=== PATIENT | female | born 1945 | race Caucasian/White ===

== ENCOUNTER 2018-10-08 18:53 | Inpatient (IN) | payer MEDICARE, OTHER ==
[~2018-10-08] VITALS: Ht 165.1 cm; Wt 76.7 kg
--- NOTE | ~2018-10-08 | PROC ---
[address] [address] PROCEDURE REPORT Name: JOSE BECERRIL Room: [address] IN M.R.#: [id number] Admission: 10/08/18 Attend Phys: Janes Fowler Discharge: Date of : 41 Report #: [id number] THIS REPORT FOR: //name// For GI report, please see the provation report in perceptive 7. By: [facility]3Medical Records Staff TIM /LIGIA
[~2018-10-08 18:53] MED LIST: AMBIEN 10 MG TA10 MG OR; ATIVAN1 MG OR; COZAAR 50 MG TA50 M1 PO; DYAZIDE; ETODOLAC 400 M400 M1; ETODOLAC 400 M400 MG OR; FISH OIL 1,0001 EAC5 OR; FISHOIL; KLOR-CON 10 ER10 MEQ OR; LEVOTHROID75 MCG OR; LEVOTHYROXIN0.075 MG PO; PERCOCET PO; SIMVASTATIN40 MG PO; TRAMADOL 50 MG50 MG PO; TRIAMTERENE-HC1 EAC1 OR; XARELTO10 MG PO
[2018-10-08 18:56] VITALS: BP 169/89
[2018-10-08 20:32] LABS: HEMATOCRIT 45.6 % (37.0-47.0); HEMOGLOBIN 15.2 gm/dL (12.0-15.0); MCH 33.1 pg (26.0-34.0); MCHC 33.4 g/dL (28.0-37.0); MCV 99.1 fL (80.0-100.0); NUCLEATED RBCS 0 /100WBC; PLATELET COUNT* 247 thou/uL (150-400); RBC 4.59 mil/uL (4.20-5.00); RDW-CV 13.2 % (10.5-14.5); WBC 13.8 thou/uL (4.0-11.0)
[2018-10-08 20:52] LABS: ANION GAP 8 mmol/L (7-16); BUN 16 mg/dL (7-18); CHLORIDE 106 mmol/L (98-107); CO2 25 mmol/L (21-32); GLUCOSE 152 mg/dL (70-99); POTASSIUM 4.2 mmol/L (3.5-5.1); SODIUM 139 mmol/L (136-145)
[2018-10-08 20:56] LABS: ALBUMIN 3.5 g/dL (3.4-5.0); ALKALINE PHOSPHATASE 120 U/L (46-116); LIPASE 150 U/L (73-393); SGOT 24 U/L (15-37); SGPT 45 U/L (30-65); TOTAL BILIRUBIN 0.4 mg/dL (<0.1-1.0); TOTAL PROTEIN 7.1 g/dL (6.4-8.2); TROPONIN-I LEVEL <0.06 ng/mL (<0.06)
[2018-10-08 21:22] LABS: ABSOLUTE LYMPHOCYTES 1.8 thou/uL (0.8-5.3); ATYPICAL LYMPHS 1 %
[2018-10-08 21:23] LABS: PLATELET ESTIMATE ADEQUATE
[2018-10-08 22:43] LABS: URINE BILIRUBIN NEGATIVE (Negative); URINE BLOOD 1+ (Negative); URINE CLARITY CLEAR; URINE COLOR YELLOW; URINE GLUCOSE-RANDOM NEGATIVE (Negative); URINE KETONES NEGATIVE (Negative); URINE LEUKOCYTES-REFLEX NEGATIVE (Negative); URINE NITRITE-REFLEX NEGATIVE (Negative); URINE PROTEIN NEGATIVE (Negative); URINE SPECIFIC GRAVITY <= 1.005 (1.005-1.030); URINE UROBILINOGEN 0.2 E.U./dl (0.2-1.0)
[2018-10-08 23:11] VITALS: BP 184/83
[2018-10-08 23:20] VITALS: BP 168/63
[2018-10-08 23:53] LABS: CASTS None Seen /LPF (None Seen); SQUAMOUS NONE SEEN /LPF (0-3)
[2018-10-08 23:54] LABS: BACTERIA-REFLEX None Seen /HPF (None Seen); CRYSTALS None Seen /LPF (None Seen); URINE RBC 0-2 Rare /HPF (0-2); URINE WBC-REFLEX None Seen /HPF (0-5)
[2018-10-09 04:00] VITALS: BP 115/54
--- NOTE | 2018-10-09 04:55 | NUR ---
KRISTINA RESTED IN BED, NO ACUTE CHANGES. PATIENT PAIN HAS DECREASED. PATIENT IS NOT SHOWING SIGNS OF DISTRESS. FALL PRECAUTIONS IN PLACE, CALL LIGHT WITHIN REACH, HOURLY ROUNDING OBSERVED.
[2018-10-09 08:05] VITALS: BP 136/73
[2018-10-09 12:00] VITALS: BP 140/68
--- NOTE | 2018-10-09 12:02 | NUR ---
PT.SITTING UP IN BED, VISITING WITH SON,CORNELL. SHE WAS ALERT AND ORIENTED. STATED HER DAUGHTER,HALIMA,LIVES WITH HER. PT.SAYS SHE IS INDEPENDENT EXCEPT FOR DRIVING. SHE COOKS,CLEANS, DOES LAUNDRY. DAUGHTER WORKS DURING THE DAY. SHE DOES NOT USE ANY DME. NO HX OF HOME HEALTH. PT.DOES NOT FEEL SHE WILL HAVE ANY DISCHARGE NEEDS. JUST HOPES THEY CAN FIGURE OUT WHAT IS CAUSING HER PAIN.
[2018-10-09 14:02] VITALS: BP 140/68
[2018-10-09 14:10] VITALS: BP 140/68
[2018-10-09 14:32] VITALS: BP 151/74
--- NOTE | 2018-10-09 16:57 | EKG ---
[place] [address] ELECTROCARDIOGRAM REPORT Name: JOSE BECERRIL Room: [address] ADM IN .R.#: [id number] Admission: 10/08/18 Attend Phys: Janes Fowler Discharge: Date of : 41 Report #: [id number] THIS REPORT FOR: //name// [facility] ED Test Date: 2018-10-08 Test Time: 20:14:38 Pat Name: JOSE BECERRIL Department: Room: [facility] Gender: [employer] Worker: Kyler MORTON : 1945 Requested By: Alfred Mcmanus Order Number: [id number] MD: Daniel Valencia Measurements Intervals [place] Rate: 82 P: 21 [place]: 149 QRS: 20 QRSD: 81 T: 58 QT: 360 QTc: 421 Interpretive Statements Sinus rhythm Compared to ECG 03/30/2017 12:55:26 No significant changes Electronically Signed On 10-09-2018 16:56:51 DOCUMENT REVIEW SPECIALIST by Daniel Valencia [email or web address] <ELECTRONICALLY SIGNED> By: Daniel Valencia MD, [facility] 10/09/18 1656 13 13 Daniel Valencia MD, FAC /EPI
--- NOTE | 2018-10-09 18:44 | NUR ---
PT IS ALERT AND ORIENTED X 4. IV PATENT. NPO FOR EGD PROCEDURE THIS AFTERNOON. DENIED PAIN AND NAUSEA DURING SHIFT. RECEIVED CARDIAC DIET AFTER PRODEURE--TOLERATED WELL. UP WITH SBA. HOURLY ROUNDS MAINTAINED. WILL USE CALL LIGHT FOR ASSISTANCE.
[2018-10-10 06:00] VITALS: BP 131/70
--- NOTE | 2018-10-10 07:29 | NUR ---
PATIENT HAS SLEPT WELL THROUGHOUT THE NIGHT. VSS ON RA. NO C/O PAIN. NO C/O NAUSEA OR VOMITING. PATIENT UP WITH SBA AND IS STEADY. IV IN RIGHT FOREARM-SL. PATIENT INSTRUCTED TO USE CALL LIGHT WHEN NEEDING ASSISTANCE. HOURLY ROUNDS MADE. WILL CONTINUE WITH PLAN OF CARE AND NURSING TO MONITOR.
[2018-10-10 08:00] VITALS: BP 150/81
[2018-10-10] MEDS ORDERED: PROTONIX40 M1 PO (12:03)
[2018-10-10] MEDS ORDERED: SYNTHROID75 MCG PO (12:07)
[2018-10-10] MEDS ORDERED: COZAAR 50 MG TA50 M1 PO (12:09)
[2018-10-10 12:11] VITALS: BP 150/81
--- NOTE | 2018-10-10 13:33 | NUR ---
PT ALERT AND ORIENTED X 4. DENIES PAIN AND NAUSEA. IV PATENT. VS STABLE. ABLE TO TOLERATE DIET WELL. DISCHARGE INSTRUCTIONS GIVEN AND PRESCRIPTION CALLED INTO [facility]. IV REMOVED. PT LEFT WITH PERSONAL BELONGINGS BY WHEEL CHAIR TO LEAVE WITH SON BY PRIVATE CAR @ 0128.
[2018-10-10 13:36] VITALS: BP 150/81
--- NOTE | 2018-10-11 14:09 | PATH ---
[facility] [address] [place] [address] PATHOLOGY RPT PROCEDURE Name: JERRICAJOSE M Room: [address] IN M.R.#: [id number] Admission: 10/08/18 Date of : 41 Discharge: 10/10/18 Report #: [id number] Path Case #: [id number] [facility] Accession Number: [id number] . 01 Material submitted: . GASTRIC BIOPSIES FOR H-PYLORI . 01 Clinical history: . None provided . 02 Diagnosis: Gastric biopsies: - Mild non-specific chronic gastritis, negative for Helicobacter pylori organisms and dysplasia. (GREGORIO/db; 10/10/2018) LBQ/10/10/2018 . 02 Comment: Special stain: H. pylori immuno . 02 Electronically signed: . Jacky Young MD, Pathologist NPI- [id number] . 01 Gross description: . Received in formalin labeled "Jose Haro, gastric biopsies for H. pylori," are 3 segments of [place]uilera soft tissue measuring 1.1 x 0.8 x 0.2 cm in aggregate dimensions and ranging from 0.4 to 0.6 cm in maximum dimension. The specimen is submitted entirely in cassette A1. (TSD; 10/09/2018) TOB/TOB . 02 Pathologist provided ICD-10: K29.50 . 02 CPT . 350017, [id number] Specimen Comment: A courtesy copy of this report has been sent to Specimen Comment: [phone], , . Specimen Comment: Report sent to ,DR COTA / DR ALMANZA Specimen Comment: A duplicate report has been generated due to demographic updates. Performed at: [address], [place] [id number] MD Samy Mckeon MD Phone: [phone] Performed at: 02 [place] [address] PATHOLOGY RPT PROCEDURE Name: ISABEL HAROA Janes Room: [address] IN M.R.#: [id number] Admission: 10/08/18 Date of : 41 Discharge: 10/10/18 Report #: [id number] Path Case #: [id number] [address] [place] [id number] MD Jacky Young MD Phone: [phone]
== END 2018-10-10 12:45 | disposition home or self-care (01) | DRG 384 ==
LOC: M.ERS 18:53 → M.ORTHSURG 22:46 → M.TBA-ER 22:46 → M.ORTHSURG 23:20
PROVIDERS: Family Medicine; ADMIT Internal Medicine
PROC: 0D798ZZ Dilation of Duodenum, Via Natural or Artificial Opening Endoscopic (ICD-10-PCS; principal; 2018-10-09)
PROC: 0DB68ZX Excision of Stomach, Via Natural or Artificial Opening Endoscopic, Diagnostic (ICD-10-PCS; principal; 2018-10-09)
DX: K26.3 Acute duodenal ulcer without hemorrhage or perforation (principal); R65.10 Systemic inflammatory response syndrome (SIRS) of non-infectious origin without acute organ dysfunction; K31.5 Obstruction of duodenum; K29.80 Duodenitis without bleeding; K57.30 Diverticulosis of large intestine without perforation or abscess without bleeding; E03.9 Hypothyroidism, unspecified; K29.00 Acute gastritis without bleeding; I10 Essential (primary) hypertension; Z90.49 Acquired absence of other specified parts of digestive tract; Z90.710 Acquired absence of both cervix and uterus; Z98.42 Cataract extraction status, left eye; Z98.41 Cataract extraction status, right eye; Z79.899 Other long term (current) drug therapy; Z87.891 Personal history of nicotine dependence; Z80.6 Family history of leukemia; Z83.3 Family history of diabetes mellitus